=== PATIENT | male | born 1945 | race Caucasian/White ===

== ENCOUNTER → 2017-09-28 | Outpatient (CLI) | payer OTHER, MEDICARE | LOC: CIMAGING 09:42 | PROVIDERS: ATTEND Family Medicine | DX: M51.36 Other intervertebral disc degeneration, lumbar region (principal); E78.5 Hyperlipidemia, unspecified; I63.9 Cerebral infarction, unspecified | CPT/HCPCS: 72100-PO ==

== ENCOUNTER 2017-10-03 15:51 | Emergency (ER) | payer OTHER, MEDICARE ==
[2017-10-03 16:04] VITALS: TEMP 98.2
[2017-10-03] MEDS ORDERED: COCAINE HCL 4% 4 ML BTL TP ONE ×2 (16:11→16:12)
[2017-10-03] MEDS ORDERED: SILVER NITRATE APPLICATOR 1 APPL TP ONE (16:12)
[2017-10-03] MEDS ORDERED: LIDOCAINE HCL 4% TOPICAL SOLN 50ML ONE (16:12)
--- NOTE | 2017-10-03 16:12 | EDPHY ---
H & P Stated Complaint: right nare nosebleed for ~ 45 min Time Seen by Provider: 10/03/17 16:06 HPI/ROS: CHIEF COMPLAINT: Epistaxis HISTORY OF PRESENT ILLNESS: Patient is a 72-year-old man who comes to the emergency department complaining of epistaxis. It began about an hour ago. He used Afrin and a nasal clamp and it has now stopped. He has a history of previous nose bleeds from the same nares. He had a polyp removed several years ago. Takes aspirin but no other blood thinners. He denies recent trauma. No headache. No lightheadedness. No chest pain or shortness of breath. REVIEW OF SYSTEMS: Constitutional: denies: chills, fever, recent illness, recent injury EENTM: See HPI Respiratory: denies: cough, shortness of breath Cardiac: denies: chest pain, irregular heart rate, lightheadedness, palpitations Gastrointestinal/Abdominal: denies: abdominal pain, diarrhea, nausea, vomiting, blood streaked stools Genitourinary: denies: dysuria, frequency, hematuria, pain Musculoskeletal: denies: joint pain, muscle pain Skin: denies: lesions, rash, jaundice, bruising Neurological: denies: headache, numbness, paresthesia, tingling, dizziness, weakness Hematologic/Lymphatic: denies: blood clots, easy bleeding, easy bruising Immunologic/allergic: denies: HIV/AIDS, transplant EXAM: GENERAL: Well-appearing, well-nourished and in no acute distress. HEAD: Atraumatic, normocephalic. EYES: Pupils equal round and reactive to light, extraocular movements intact, sclera anicteric, conjunctiva are normal. ENT: TMs normal, right nares with anterior septal clot. oropharynx clear without exudates. Moist mucous membranes. NECK: Normal range of motion, supple without lymphadenopathy or JVD. LUNGS: Breath sounds clear to auscultation bilaterally and equal. No wheezes rales or rhonchi. HEART: Regular rate and rhythm without murmurs, rubs or gallops. ABDOMEN: Soft, nontender, normoactive bowel sounds. No guarding, no rebound. No masses appreciated. BACK: No CVA tenderness, no spinal tenderness, step-offs or deformities EXTREMITIES: Normal range of motion, no pitting or edema. No clubbing or cyanosis. NEUROLOGICAL: Cranial nerves II through XII grossly intact. Normal speech, normal gait. 5/5 strength, normal movement in all extremities, normal sensation PSYCH: Normal mood, normal affect. SKIN: Warm, dry, normal turgor, no visible rashes or lesions. Source: Patient, Family - Personal History Current Tetanus Diphtheria and Acellular Pertussis (TDAP): No Tetanus Vaccine Date: 2005 - Medical/Surgical History Hx Asthma: No Hx Chronic Respiratory Disease: No Hx Diabetes: No Hx Cardiac Disease: Yes Hx Renal Disease: No Hx Cirrhosis: No Hx Alcoholism: No Other PMH: prostatectomy r/t ca. CVA 2015. htn. chol - Family History Significant Family History: No pertinent family hx - Social History Smoking Status: Former smoker Alcohol Use: Sober Drug Use: None Constitutional: Initial Vital Signs Temperature (C) 36.8 C 10/03/17 15:58 Heart Rate 90 10/03/17 15:58 Respiratory Rate 20 10/03/17 15:58 Blood Pressure 147/89 H 10/03/17 15:58 O2 Sat (%) 93 10/03/17 15:58 O2 Delivery Mode Room Air Allergies/Adverse Reactions: SEASONAL Allergy (Intermediate, Uncoded 10/03/17 15:54) NASAL CONGESTION Home Medications: Medication Instructions Recorded ALPRAZolam 10/03/17 Advil 10/03/17 Afrin Nasal [place] 10/03/17 Artificial Tears 10/03/17 Aspirin 81mg (*) 10/03/17 Astaxanthin 10/03/17 Cbd Oil 10/03/17 Coq10 10/03/17 Escitalopram Oxalate 10/03/17 FLUTICASONE PROPIONATE 10/03/17 Genteal Tears 0.1%-0.2%-0.3% 10/03/17 Multiple Vitamin 10/03/17 Pravastatin Sodium 10/03/17 Preservision Areds Tablet 10/03/17 Probiotic 10/03/17 SYSTANE 0.3-0.4% EYE DROPS 10/03/17 Tylenol 10/03/17 Zantac 10/03/17 Medical Decision Making ED Course/Re-evaluation: The patient's nose was instilled with a cotton ball soaked in lidocaine and cocaine. Near was cauterized. Unfortunately it did started using again. Another cotton ball was placed. 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 We agreed to have the nasal cotton ball packing in place until just before his gait. I then advised him to use a couple squirts of Afrin. Hopefully this will be enough to prevent any further bleeding. He understands that it may began bleeding again especially while he is seeming. If this happens he will return for packing. Differential Diagnosis: Partial list of the Differential diagnosis considered include but were not limited to; epistaxis, trauma and although unlikely based on the history and physical exam, I also considered infection, posterior bleed. I discussed these differential diagnoses and the plan with the patient as well as the usual and expected course. The patient understands that the diagnosis is provisional and that in medicine we are not always correct and that further workup is often warranted. Usual and customary warnings were given. All of the patient's questions were answered. The patient was instructed to return to the emergency department should the symptoms at all worsen or return, otherwise to followup with the physician as we discussed. Departure - Departure Disposition: Home, Routine, Self-Care Clinical Impression: Acute anterior epistaxis Condition: Fair Instructions: Nosebleed (ED) Referrals: Girma Partida MD [Primary Care Provider] - As per Instructions
[2017-10-03 16:57] VITALS: BP 132/90; PULSE 86; RESP 16; O2SAT 94
== END 2017-10-03 17:00 | disposition home or self-care (01) ==
LOC: CED 15:51
DX: R04.0 Epistaxis (principal); I10 Essential (primary) hypertension; Z79.82 Long term (current) use of aspirin; Z86.73 Personal history of transient ischemic attack (TIA), and cerebral infarction without residual deficits; Z87.891 Personal history of nicotine dependence

== ENCOUNTER → 2018-10-25 | Outpatient (CLI) | payer OTHER, MEDICARE | LOC: BRMIMAGING 13:13 | PROVIDERS: ATTEND Family Medicine | DX: Z13.820 Encounter for screening for osteoporosis (principal); M85.832 Other specified disorders of bone density and structure, left forearm ==